=== PATIENT | female | born 1980 | race Caucasian/White ===

== ENCOUNTER 2017-02-12 10:20 | Emergency (ER) | payer BC ==
--- NOTE | 2017-02-12 11:34 | C.PDOC ---
History Of Present Illness <Mercedes Patton - Last Filed: 02/12/17 11:29> <Frank Bullard - Last Filed: 02/12/17 11:54> Patient is a 36 y/o female presents to the ED for evaluation of palpitations for the last 2 nights. Pt described palpitations as rapid heart beat. 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 Pt stated she checked her blood pressure after feeling lightheaded and was found to be 145/104, and heart rate was 122. Otherwise, denies any chest pain, shortness of breath, headache, nausea, vomiting, fever, chills, or any other associated symptoms at this time. Of note, pt is trying to conceive, has started taking vitamins and stopped caffeine use. (Frank Bullard) <Mercedes Patton - Last Filed: 02/12/17 11:29> History Per: Patient History/Exam Limitations: no limitations Current Symptoms Are (Timing): Still Present Associated Symptoms: denies: Chest Pain, Dyspnea, Blurred Vision, Focal Weakness , Headache Quality Of Symptoms: Rapid Heart Rate <Frank Bullard - Last Filed: 02/12/17 11:54> Time Seen by Provider: 02/12/17 10:59 Chief Complaint (Nursing): High Blood Pressure Past Medical History - Medical History PMH: Migraine Family History: States: Unknown Family Hx - Social History Hx Alcohol Use: No Hx Substance Use: No - Immunization History Hx Tetanus Toxoid Vaccination: No Hx Influenza Vaccination: No Hx Pneumococcal Vaccination: No <Mercedes Patton - Last Filed: 02/12/17 11:29> ED Course And Treatment O2 Sat by Pulse Oximetry: 99 <Mercedes Patton - Last Filed: 02/12/17 11:29> Disposition <Mercedes Patton - Last Filed: 02/12/17 11:29> <Frank Bullard - Last Filed: 02/12/17 11:54> - Disposition Forms: [facility] ([place]ian) <Mercedes Patton - Last Filed: 02/12/17 11:29> - PA / [employer] / Resident Statement MD/DO has reviewed & agrees with the documentation as recorded. - Scribe Statement The provider has reviewed the documentation as recorded by the Scribe <Frank Bullard - Last Filed: 02/12/17 11:54> - Scribe Statement Porfirio Granda All medical record entries made by the Scribe were at my direction and personally dictated by me. I have reviewed the chart and agree that the record accurately reflects my personal performance of the history, physical exam, medical decision making, and the department course for this patient. I have also personally directed, reviewed, and agree with the discharge instructions and disposition. (Frank Bullard)
[2017-02-12] MEDS ORDERED: Sodium Chloride 0.9% 1,000 ML IV ONE (11:36)
--- NOTE | 2017-02-12 11:58 | C.PDOC ---
History Of Present Illness Patient is a 36 y/o female presents to the ED for evaluation of palpitations for the last 3 nights. Pt described palpitations as rapid heart beat. 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 Pt stated she checked her blood pressure after feeling lightheaded and was found to be 145/104, and heart rate was 122. Otherwise, denies any chest pain, shortness of breath, headache, nausea, vomiting, fever, chills, or any other associated symptoms at this time. Of note, pt is trying to conceive, has started taking vitamins and stopped caffeine use. Notes she has appointment with park aide next week. Time Seen by Provider: 02/12/17 10:59 Chief Complaint (Nursing): High Blood Pressure History Per: Patient History/Exam Limitations: no limitations Onset/Duration Of Symptoms: Days (2) Current Symptoms Are (Timing): Still Present Associated Symptoms: denies: Chest Pain, Dyspnea, Blurred Vision, Focal Weakness , Headache Quality Of Symptoms: Rapid Heart Rate Severity: None Pain Scale Rating Of: 0 Recent travel outside of the [place]: No Additional History Per: Patient Past Medical History Reviewed: Historical Data, Nursing Documentation, Vital Signs Vital Signs: Last Vital Signs Temp 98.4 F 02/12/17 14:38 Pulse 80 02/12/17 14:38 Resp 16 02/12/17 14:38 BP 122/81 02/12/17 14:38 Pulse Ox 99 02/12/17 14:46 - Medical History PMH: Migraine Family History: States: Unknown Family Hx - Social History Hx Alcohol Use: No Hx Substance Use: No - Immunization History Hx Tetanus Toxoid Vaccination: No Hx Influenza Vaccination: No Hx Pneumococcal Vaccination: No Review Of Systems Constitutional: Negative for: Fever, Chills Cardiovascular: Positive for: Palpitations, Light Headedness. Negative for: Chest Pain Respiratory: Negative for: Cough, Shortness of Breath, Pleuritic Pain Gastrointestinal: Negative for: Nausea, Vomiting, Abdominal Pain Skin: Negative for: Rash, Bruising Neurological: Negative for: Weakness, Numbness, Headache, Dizziness Physical Exam - Physical Exam Appears: Non-toxic, No Acute Distress Skin: Normal Color, Warm, Dry, No Rash Head: Atraumatic, Normacephalic Eye(s): bilateral: Normal Inspection, EOMI Oral Mucosa: Dry Neck: Normal ROM, Supple Chest: Symmetrical, No Tenderness Cardiovascular: Rhythm Regular, No Murmur Respiratory: Normal Breath Sounds, No Rales, No Rhonchi, No Wheezing Gastrointestinal/Abdominal: Soft, No Tenderness Extremity: Bilateral: Atraumatic, Normal ROM Neurological/Psych: Oriented x3, Normal Speech ED Course And Treatment - Laboratory Results Result Diagrams: 02/12/17 11:58 02/12/17 11:58 ECG: Interpreted By Me, Viewed By Me ECG Rhythm: Sinus Tachycardia ECG Interpretation: No Acute Changes Rate From EC (bpm) O2 Sat by Pulse Oximetry: 99 (RA) Pulse Ox Interpretation: Normal Medical Decision Making Medical Decision Making: Plan: Blood work, UA, EKG. Pt was given IV fluids. On re-evaluation, pt is resting comfortably, no acute distress. No chest pain, or shortness of breath. 242 pm pt feeling well, no longer has palpitations. pt has appt with park aide for next Sat; recommend Holter. will d/c hr in 80s now, bp normal Disposition Counseled Patient/Family Regarding: Studies Performed, Diagnosis, Need For Followup - Disposition Disposition: HOME/ ROUTINE Disposition Time: 14:44 Condition: STABLE Additional Instructions: Evite los productos con cafena. Kwame un seguimiento con haynes mdico de cabecera en 1-2 mtz. Regrese a ER para cualquier empeoramiento de los sntomas. Tales arya dolor en el pecho, dificultad para respirar u otras preocupaciones. Seguir con el cardilogo la prxima semana segn lo programado; Recomendar Holter Monitoring. Instructions: Palpitations (ED) Forms: Gen Discharge Inst French, [facility] (French), Work Excuse Print Language: GRENADIAN - Clinical Impression Clinical Impression: Palpitation - PA / IT ANALYST / Resident Statement MD/DO has reviewed & agrees with the documentation as recorded. - Scribe Statement The provider has reviewed the documentation as recorded by the Chalinoibe Porfirio Granda All medical record entries made by the Scribe were at my direction and personally dictated by me. I have reviewed the chart and agree that the record accurately reflects my personal performance of the history, physical exam, medical decision making, and the department course for this patient. I have also personally directed, reviewed, and agree with the discharge instructions and disposition.
[2017-02-12 12:06] LABS: BASO % 0.5 % (0.0-2.0); EOS # 0.1 K/uL (0.0-0.7); EOS % 0.9 % (0.0-4.0); HEMATOCRIT 41.4 % (34.0-47.0); LYMPH # 1.5 K/uL (1.0-4.3); LYMPH % 16.6 % (20.0-40.0); MEAN CELL VOLUME 91.1 fL (81.0-99.0); MEAN CORPUSCULAR HEMOGLOBIN 31.6 pg (27.0-31.0); MEAN CORPUSCULAR HGB CONC 34.7 g/dL (33.0-37.0); MEAN PLATELET VOLUME 9.4 fL (7.2-11.7); MONO # 0.5 K/uL (0.0-0.8); MONO % 5.4 % (0.0-10.0); NRBC % 0.1 % (0.0-2.0); RED CELL DISTRIBUTION WIDTH 13.1 % (11.5-14.5)
[2017-02-12 12:13] LABS: CHLORIDE 101 mmol/L (98-107); POTASSIUM 4.3 mmol/L (3.6-5.2); SODIUM 142 mmol/L (132-148)
[2017-02-12 12:15] LABS: AST/SGOT 40 U/L (14-36); BILIRUBIN,TOTAL 0.7 mg/dL (0.2-1.3); CARBON DIOXIDE 26 mmol/L (22-30); GFR AFRICAN-AMERICAN > 60
[2017-02-12 12:16] LABS: ALB/GLOB RATIO 1.3 (1.0-2.1); ALKALINE PHOSPHATASE 60 U/L (38-126); ALT/SGPT 70 U/L (9-52); BLOOD UREA NITROGEN 7 mg/dL (7-17); CALCIUM 9.5 mg/dl (8.6-10.4); GLUCOSE,RANDOM 103 mg/dL (65-105); TOTAL PROTEIN 7.5 g/dL (6.3-8.3)
[2017-02-12 12:22] LABS: RBC URINE < 1 /hpf (0-3); URINE BACTERIA RARE (<OCC); URINE BILIRUBIN NEGATIVE (NEGATIVE); URINE BLOOD NEGATIVE (NEGATIVE); URINE COLOR Straw (YELLOW); URINE GLUCOSE (UA) NORMAL (Normal); URINE KETONE NEGATIVE (NEGATIVE); URINE LEUKOCYTE ESTERASE NEG Leu/uL (Negative); URINE PROTEIN NEGATIVE (NEGATIVE); URINE UROBILINOGEN NORMAL mg/dL (0.2-1.0)
[2017-02-12 14:39] VITALS: BP 122/81; PULSE 80; RESP 16; TEMP 98.4
[2017-02-12 14:46] VITALS: O2SAT 99
--- NOTE | 2017-02-16 | CARD ---
APPROVED REPORT EKG Measurement Heart [id number] <Conclusion> Sinus tachycardia T wave abnormality, consider inferior ischemia Abnormal ECG
== END 2017-02-12 15:08 | disposition home or self-care (01) ==
LOC: C.ER 10:20
DX: R00.2 Palpitations (principal)
CPT/HCPCS: 80053; 81001; 84703; 85025; 96360; 99284; J7040